=== PATIENT | female | born 1935 | race Caucasian/White ===

== ENCOUNTER 2021-01-26 10:18 | Inpatient (IN) | payer MEDICARE ==
[~2021-01-26] VITALS: Ht 160 cm; Wt 50.8 kg
--- NOTE | 2021-01-26 12:30 | NUR ---
GPS/RN PT RECEIVED FROM [facility] DIRECT ADMISSION ON 5150 FOR GD.ORIGINALLY FROM HOME. ON FACE TO FACE ASSESSMENT NO SI OR HI REPORTED. PT AMBULATORY NO ACUTE DISTRESS, VSS. REFUSED TO SIGN ADMITTING PAPERWORK AND REFUSED PICTURES TAKEN. PT CHECKED FOR CONTRABAND. VALUABLES PLACED TO THE SAFE. DR PRIETO PRESENT IN THE UNIT. DR HOLLAND MADE AWARE OF ADMISSION. PT REFUSED MRSA SWAB ON ADMISSION,WILL TRY LATER.
[2021-01-26] MEDS ORDERED: ZOLP10TA2 PO (12:57)
[2021-01-26] MEDS ORDERED: CLON1TAB12 PO (12:57)
[2021-01-26] MEDS ORDERED: CEPH500C2 PO (12:57)
[2021-01-26] MEDS ORDERED: ALPR1TAB7 PO (12:57)
[2021-01-26 13:00] VITALS: BP 146/96
[2021-01-26] MEDS ORDERED: BLOOD SUGAR DIAGNOSTIC 1 EACH STRIP IN ONE (13:00)
[2021-01-26] MEDS ORDERED: MAG HYDROX/AL HYDROX/SIMETH 30 ML UDC PO PRN (13:00)
[2021-01-26] MEDS ORDERED: ZOLPIDEM TARTRATE 5 MG TABLET PO PRN (13:00)
--- NOTE | 2021-01-26 14:14 | NUR ---
GPS/RN PT REFUSED MRSA SWAB. OFFERED X3.
[2021-01-26] MEDS: LORAZEPAM 0.5 MG TABLET PO PRN ×2 (14:26→21:07)
--- NOTE | 2021-01-26 14:51 | NUR ---
RN-CO: PT REFUSED MRSA SWAB AND SKIN CHECK.
[2021-01-26 16:00] VITALS: BP 146/95
--- NOTE | 2021-01-26 20:30 | NUR ---
GPS-RN NOTES: PAGED EPIC ON-CALL DR. VELÁZQUEZ REGARDING KEFLEX A CONTINUATION ORDER FROM [facility]. AWAITING CALL BACK FROM
[2021-01-26 21:03] VITALS: BP 119/83
--- NOTE | 2021-01-26 21:07 | NUR ---
GPS-RN NOTES: ANXIETY PT. C/O FEELING ANXIOUS. PRN ATIVAN 1 MG PO GIVEN PER PATIENT'S REQUEST. WILL CONTINUE TO MONITOR FOR PATIENT'S SAFETY.
[2021-01-26] MEDS ORDERED: TRAZODONE 50 MG TABLET PO SCH (22:00)
[2021-01-26] MEDS: ACETAMINOPHEN 325 MG TABLET PO PRN (22:58)
--- NOTE | 2021-01-26 22:58 | NUR ---
GPS-RN NOTES: ACETAMINOPHEN 650MG PO GIVEN C/O HEADACHE. WILL CONTINUE TO MONITOR.
--- NOTE | 2021-01-27 00:02 | NUR ---
GPS-RN NOTES: DR. VELÁZQUEZ CALLED BACK INFORMED HIM PATIENT IS COMPLAINING OF BURNING SENSATION WHEN URINATING. PATIENT ORDERED U/A NOTED AND CARRIED OUT.
--- NOTE | 2021-01-27 04:45 | NUR ---
GPS RN NOTES: ANSWERED CALL LIGHT TO PATIENT'S ROOM ([phone]) AND PATIENT C/O "I CAN'T BREATHE". PT STATED REPEATEDLY, "I HAVE A HARD TIME BREATHING". PATIENT IS ALERT AND ORIENTED X3, ABLE TO MAKE NEEDS KNOWN, ANXIOUS AND RESTLESS. PATIENT MADE COMFORTABLE, HEAD OF BED ELEVATED, VITAL SIGNS TAKEN AND NOTED BP 187/102, R 20, PULSE 102 T98.2, O2 SATURATION @99% ON ROOM AIR. BLOOD SUGAR WAS 99MG/DL. MONITORED PATIENT'S CLOSELY. 0450-CALLED RAPID RESPONSE 0452-RAPID TEAM ARRIVED IN THE UNIT TOOK OVER THE PATIENT TO REASSESS. NURSING PRINT PRODUCTION COORDINATOR AT BEDSIDE. PT. REMAINS ALERT AND ORIENTED X3, VERY ANXIOUS, RESTLESS AND HYPERVERBAL. RECHECKED V/S BP 150/95, R20, PULSE 92, T98.0, O2 SATURATION @100%. 0505- PRN ATIVAN 1MG PO GIVEN ORDERED, WELL TOLERATED. PATIENT CONTINUES TO BE ANXIOUS. 050- ACETAMINOPHEN 650MG PO GIVEN, PATIENT C/O RIB CAGE PAIN. WILL CONTINUE TO REASSESS. PAGED EPIC ON-CALL DR. VELÁZQUEZ. AWAITING CALL BACK FROM . 0520 - PATIENT IS CALM AND COOPERATIVE. PT DENIES PAIN OR DISCOMFORT AT THIS TIME. NO C/O CHEST PAIN. PATIENT STATED "I FEEL BETTER NOW". OFFERED SNACKS/FLUIDS, TOLERATED WELL. NO FAMILY TO NOTIFY. WILL ENDORSE TO THE DAY SHIFT NURSE. Addendum: 01/27/21 at 0734 by TISH MENDIOLA RN LEFT VOICE MESSAGE TO ELIZABETH RAVI [phone]. AWAITING RESPONSE. WILL ENDORSE TO DAY SHIFT NURSE FOR CONTINUITY OF CARE. Addendum: 01/27/21 at 0737 by TISH MENDIOLA RN 0700- DR. MIDDLETON MADE HIS AM ROUNDS. PATIENT WAS SEEN AND EVALUATED BY MD WITH NO NEW ORDER AT THIS TIME. URINALYSIS RESULTS TO BE FOLLOWED BY AM NURSE.
[2021-01-27 04:47] LABS: BILIRUBIN,URINE NEGATIVE (NEGATIVE); COLOR,URINE YELLOW (YELLOW); LEUKOCYTE ESTERASE ,URINE TRACE (NEGATIVE); NITRITE, URINE NEGATIVE (NEGATIVE); PROTEIN,URINE NEGATIVE (NEGATIVE); UGLUCOSE NEGATIVE (NEGATIVE); UROBILINOGEN,URINE 0.2 EU/dL (0.2)
[2021-01-27] MEDS: LORAZEPAM 0.5 MG TABLET PO PRN ×4 (05:05→23:28)
[2021-01-27] MEDS: ACETAMINOPHEN 325 MG TABLET PO PRN (05:09)
[2021-01-27 05:13] LABS: RBC,URINE 0-2 /HPF (0-2)
[2021-01-27 05:14] LABS: BACTERIA,URINE Few /HPF (None Seen); MUCUS,URINE Few /LPF (None Seen); SQUAMOUS EPITHELIAL CELL,UR Few /HPF (None Seen)
[2021-01-27 07:01] VITALS: BP 187/102
[2021-01-27 08:00] VITALS: BP 156/87
[2021-01-27] MEDS: SERTRALINE HCL 25 MG TABLET PO SCH (08:37)
--- NOTE | 2021-01-27 11:08 | NUR ---
ATIVAN PRN GIVEN DUE TO ANXIETY. WILL CONTINUE TO MONITOR.
--- NOTE | 2021-01-27 12:06 | NUR ---
SHAKIRA Initial Discharge: Patient resides at [address] [place] [address]; ([phone]). Patient has a boyfriend of 30 years named Ricardo ([phone]). Pt would want to go back home upon dc. SHAKIRA will work with the MD and treatment team to coordinate appropriate discharge.
--- NOTE | 2021-01-27 12:07 | NUR ---
Social Work Note/Substance Abuse Intervention: Patient was provided with a brief substance abuse intervention and referred to [facility] ([phone]), [facility] ([phone]), and [facility] ([phone]) for cocaine use.
[2021-01-27 12:30] LABS: ALBUMIN 3.8 g/dL (3.4-5.0); BILIRUBIN,TOTAL 0.6 mg/dL (0.2-1.0); CALCIUM, SERUM 9.2 mg/dL (8.5-10.1); POTASSIUM 3.2 mmol/L (3.5-5.1); TOTAL PROTEIN, SERUM 6.8 g/dL (6.4-8.2)
[2021-01-27 12:33] LABS: CHOLESTEROL 197 mg/dL (<200); HDL CHOLESTEROL 65 mg/dL (40-60); TRIGLYCERIDES 171 mg/dL (30-150)
[2021-01-27 12:57] LABS: LDL 95 mg/dL (0-99)
[2021-01-27] MEDS: CEPHALEXIN MONOHYDRATE 500 MG CAPSULE PO SCH ×2 (13:00→17:28)
[2021-01-27 16:00] VITALS: BP 130/74
--- NOTE | 2021-01-27 17:29 | NUR ---
ATIVAN 1mg GIVEN DUE TO ANXIETY. WILL CONTINUE TO MONITOR.
[2021-01-27 19:30] VITALS: BP 114/71
[2021-01-27] MEDS: TRAZODONE 50 MG TABLET PO SCH (21:02)
[2021-01-28] MEDS: ACETAMINOPHEN 325 MG TABLET PO PRN (00:47)
[2021-01-28] MEDS: LORAZEPAM 0.5 MG TABLET PO PRN ×3 (07:57→22:09)
--- NOTE | 2021-01-28 07:57 | NUR ---
PT. C/O FEELING ANXIOUS. PRN ATIVAN 1 MG PO GIVEN PER PATIENT'S REQUEST. WILL CONTINUE TO MONITOR FOR PATIENT'S SAFETY.
[2021-01-28 08:00] VITALS: BP 112/82
[2021-01-28] MEDS: SERTRALINE HCL 25 MG TABLET PO SCH (09:12)
[2021-01-28] MEDS: CEPHALEXIN MONOHYDRATE 500 MG CAPSULE PO SCH ×3 (09:15→17:24)
--- NOTE | 2021-01-28 15:05 | NUR ---
PT. C/O FEELING ANXIOUS. PRN ATIVAN 1 MG PO GIVEN PER PATIENT'S REQUEST. WILL CONTINUE TO MONITOR FOR PATIENT'S SAFETY.
[2021-01-28 15:34] VITALS: BP 126/68
--- NOTE | 2021-01-28 19:28 | NUR ---
GPS RN NOTE, RECEIVED PATIENT AWAKE AND IN BED, NO S/S OR COMPLAINTS OF PAIN AT THIS TIME. PATIENT IS DISPLAYING NO S/S OF APPARENT DISTRESS AT THIS TIME. PATIENT BREATHING IS UNLABORED WITH EQUAL RISE AND FALL OF THE CHEST. PATIENT IS ALERT AND ORIENTED X 3 ON ROOM AIR WITH A SPO2 96%. PATIENT IS COMPLIANT WITH MEDICATIONS, ANXIOUS AT TIMES, NEEDY, COOPERATIVE AND NEEDS REDIRECTION. PATIENT DENIES SUICIDAL AND HOMICIDAL IDEATIONS AT THIS TIME. PATIENT ASSISTED WITH TURNING AND REPOSITIONING Q2HR AND PRN FOR COMFORT AND CIRCULATION. PATIENT HAS NO NEEDS AT THIS TIME. PATIENT EDUCATED ON THE USE OF THE CALL BEAL. PATIENT BED SIDE RAILS UP X 2 FOR SAFETY. PATIENT BED IS LOCKED, LOW, WITH BED ALARM ON. WILL CONTINUE TO MONITOR THIS PATIENT Q15 MINUTES WITH THE HELP OF STAFF TO MAINTAIN SAFETY.
[2021-01-28 20:00] VITALS: BP 151/97
--- NOTE | 2021-01-28 20:42 | NUR ---
GPS RN NOTE, PATIENT POTASSIUM IS 3.2 ON 01/27/21 @ 0900 AND HAS NOT BEEN REPLACED. PAGED [facility] AND INFORMED DR CARTY OF MY FINDINGS. DR CARTY ORDERED K DUR 40MEQ PO ONCE. ALL ORDERS NOTED AND CARRIED OUT. WILL CONTINUE TO MONITOR THIS PATIENT WITH THE HELP OF STAFF.
[2021-01-28] MEDS: TRAZODONE 50 MG TABLET PO SCH (21:04)
[2021-01-28] MEDS: MAGNESIUM HYDROXIDE 30 ML UDC PO PRN (21:05)
--- NOTE | 2021-01-28 21:05 | NUR ---
GPS RN NOTE, PATIENT HAS A COMPLAINT OF CONSTIPATION AND IS REQUESTING MILK OF MAGNESIA AT THIS TIME. PATIENT VITAL SIGNS ARE STABLE. GAVE MILK OF MAGNESIA 30 ML DOSE PO Q12HR PRN ORDERED. WILL REASSESS AND I WILL CONTINUE TO MONITOR THIS PATIENT WITH THE HELP OF STAFF.
[2021-01-28] MEDS ORDERED: POTASSIUM CHLORIDE 20 MEQ TAB.PRT.SR PO ONE (22:00)
--- NOTE | 2021-01-28 22:11 | NUR ---
GPS RN NOTE, PATIENT HAS A COMPLAINT OF FEELING ANXOUS AND IS REQUESTING ATIVAN AT TTHIS TIME. PATIENT VITAL SIGNS ARE STABLE. GAVE ATIVAN 1MG PO Q6HR PRN ORDERED. WILL REASSESS FOR ANXIETY AND I WILL CONTINUE TO MONITOR THIS PATIENT WITH THE HELP OF STAFF.
[2021-01-29] MEDS: LORAZEPAM 0.5 MG TABLET PO PRN ×2 (06:58→18:23)
[2021-01-29 08:00] VITALS: BP 146/90
[2021-01-29] MEDS: CEPHALEXIN MONOHYDRATE 500 MG CAPSULE PO SCH ×3 (08:09→16:36)
[2021-01-29] MEDS: SERTRALINE HCL 25 MG TABLET PO SCH ×2 (08:09→08:24)
--- NOTE | 2021-01-29 08:24 | NUR ---
RN-CO: 25 MG PO OF ZOLOFT WAS GIVEN AT 0809 AM AND ANOTHER 25 MG GIVEN OF NOW DUE TO DR PRIETO"S NEW ORDER OF 50 MG.
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
--- NOTE | 2021-01-29 09:25 | NUR ---
SHAKIRA Coordination of Care: Patient will follow up with (Psychiatrist) Dr. Sivakumar Hartmann [place] at [address] [address], [place] [phone]; left a voicemail for the doctor to contact pt of appointment.
--- NOTE | 2021-01-29 09:30 | NUR ---
SHAKIRA Coordination of Care: Patient will follow up with (Psychiatrist) Dr. Sivakumar Hartmann located at [id number] [place] [address] [address] [facility], [place] [address]; ([phone]) on February 06 at 9:30AM.
--- NOTE | 2021-01-29 09:39 | NUR ---
SHAKIRA Coordination of Care: SHAKIRA coordinated home health services through [facility] ([phone]; fax: [phone]) admin Alexander stated pt is approved for services.
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
--- NOTE | 2021-01-29 13:06 | NUR ---
SHAKIRA Family Contact: SHAKIRA spoke with patient's boyfriend Ricardo ([phone]) he shared that he lives with pt and takes care of pt. He stated that he is in the process of finding a new job to support pt.
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
[2021-01-29 16:00] VITALS: BP 130/82
[2021-01-29] MEDS: hydrOXYzine PAMOATE 25 MG CAPSULE PO PRN (16:40)
--- NOTE | 2021-01-29 16:40 | NUR ---
RN-CO: KAYY REQUESTED FOR C/O ANXIETY.
--- NOTE | 2021-01-29 18:27 | NUR ---
RNGunnarCO: ATIVAN 1 MG PO FOR C/O ANXIETY ATTACK.
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
--- NOTE | 2021-01-29 18:34 | NUR ---
RN-CO: PAGED DR MIDDLETON FOR THE RESULT OF URINE CULTURE AND SENSITIVITY. AWAITING TO CALL BACK. WILL RELAY ALSO THE PRESCRIPTION OF [place] [facility] , DR LEVI TO ADD CIPRO 25 MG PO BID X 3 DAYS. PT HAS 2 ORGANISMS IN URINE, KLEBSIELLA PNEUMONIAE AND E. COLI.
[2021-01-29 20:00] VITALS: BP 155/94
[2021-01-29] MEDS: MAGNESIUM HYDROXIDE 30 ML UDC PO PRN (20:21)
--- NOTE | 2021-01-29 20:24 | NUR ---
RN NOTE: C/O CONSTIPATION PATIENT C/O CONSTIPATION AND REQUESTED TO TAKE MILK OF MAGNESIA, PRN MILK OF MAGNESIA ADMINISTERED ORDERED. WILL CONTINUE TO MONITOR.
--- NOTE | 2021-01-29 20:30 | NUR ---
RN NOTE: PAGED DR GORMAN FOR THE RESULT OF URINE CULTURE AND SENSITIVITY. AWAITING TO CALL BACK. WILL ALSO RELAY THE PRESCRIPTION OF [facility] , DR LEVI TO ADD CIPRO 250 MG PO BID X 3 DAYS. PT HAS 2 ORGANISMS IN URINE, KLEBSIELLA PNEUMONIAE AND E. COLI. WAITING FOR MD TO CALL BACK.
[2021-01-29] MEDS: TRAZODONE 50 MG TABLET PO SCH (21:19)
--- NOTE | 2021-01-29 23:53 | NUR ---
RN NOTE DR. CARTY VISITED THE UNIT AND REVIEWED PATIENT'S URINE CULTURE & SENSITIVITY RESULTS. MD ORDERED CIPROFLOXACIN 250 MG Q12 HOURS X 3 DAYS. ORDER NOTED & CARRIED OUT. NO CHANGE OF CONDITION NOTED AT THIS TIME. PATIENT IS SLEEPING COMFORTABLY.
[2021-01-30] MEDS: ACETAMINOPHEN 325 MG TABLET PO PRN (00:26)
--- NOTE | 2021-01-30 00:30 | NUR ---
RN NOTE PATIENT C/O UPPER BODY ACHE 05/29 & REQUESTED TO TAKE TYLENOL. PRN TYLENOL 650 MG PO ADMINISTERED. WILL CONTINUE TO MONITOR.
[2021-01-30] MEDS: hydrOXYzine PAMOATE 25 MG CAPSULE PO PRN ×3 (00:41→17:56)
--- NOTE | 2021-01-30 00:41 | NUR ---
RN NOTE: ANXIETY PATIENT C/O ANXIETY AND REQUESTED TO TAKE MEDICINE FOR ANXIETY. PRN VISTARIL 25 MG PO ADMINISTERED, PATIENT IS TALKATIVE, VENTILATED HER FEELINGS, EMOTIONAL SUPPORT PROVIDED. WILL CONTINUE TO MONITOR THE PATIENT CLOSELY.
[2021-01-30] MEDS: LORAZEPAM 0.5 MG TABLET PO PRN (06:35)
--- NOTE | 2021-01-30 07:17 | NUR ---
RN NOTE: ANXIETY PATIENT VERBALIZED BEING ANXIOUS AND RESTLESS AND REQUESTED TO GET ATIVAN. PRN ATIVAN 1 MG PO ADMINISTERED. ENDORSED TO AM RN.
[2021-01-30 08:00] VITALS: BP 119/67
[2021-01-30] MEDS: CIPROFLOXACIN HCL 250 MG TABLET PO SCH ×2 (08:08→21:35)
[2021-01-30] MEDS: SERTRALINE HCL 25 MG TABLET PO SCH (08:08)
[2021-01-30] MEDS: CEPHALEXIN MONOHYDRATE 500 MG CAPSULE PO SCH ×3 (08:09→16:02)
[2021-01-30 16:00] VITALS: BP 118/66
[2021-01-30 20:00] VITALS: BP 156/84
--- NOTE | 2021-01-30 20:56 | NUR ---
GPS-RN NOTES: PATIENT IS COMPLAINING OF NOT HAVING BOWEL MOVEMENT. ABDOMEN IS TENDER. PRUNE JUICE OFFERED. DR. CARTY ORDERED LACTULOSE 30G PO X ONE TIME. ORDER NOTED AND CARRIED OUT. WILL CONTINUE TO MONITOR.
[2021-01-30] MEDS ORDERED: LACTULOSE 10 G/15 ML UDC (PYXIS) PO ONE (21:00)
[2021-01-30] MEDS: TRAZODONE 50 MG TABLET PO SCH (22:01)
--- NOTE | 2021-01-31 00:15 | NUR ---
RN NOTE: C/O CONSTIPATION WHILE MAKING ROUNDS, WAIST PLEATER NOTED PATIENT WAS SITTING ON THE EDGE OF THE BED, PATIENT LOOKED LETHARGIC. WAIST PLEATER CALLED FOR HELP, 2 NURSES WENT TO THE ROOM IMMEDIATELY TO ASSESS THE PATIENT, WHEN ATTEMPTED TO ASSIST PATIENT BACK TO BED BY 3 NURSES, PATIENT PASSED OUT. RAPID RESPONSE WAS CALLED & CANCELLED BECAUSE PATIENT BECAME STABLE AND RESPONSIVE. VITAL SIGNS ARE 120/77, 90, 18, 97.8, 97% AT ROOM AIR. PATIENT STARTED TALKING AND STATED, " I PASSED OUT BECAUSE I STRAINED TO HAVE A BOWEL MOVEMENT." PATIENT CONTINUOS TO HAVE C/O CONSTIPATION AND ABDOMINAL DISCOMFORT, PER PATIENT, " I HAVEN'T HAD NORMAL BOWEL MOVEMENT FOR FOR MORE THAN A WEEK, I HAVE CONSTIPATION PROBLEM SINCE I WAS 26 YEARS OLD. I NEED SOME MEDICINE." PATIENT IS PASSING GAS. DR. CARTY NOTIFIED THAT PATIENT IS STILL C/O CONSTIPATION AND LACTULOSE WAS GIVEN BUT INEFFECTIVE. DR. CARTY ORDERED US ABDOMEN IN AM AT 0800 AND FLEET ENEMA PA X 1. ORDER NOTED NOTED AND CARRIED OUT. WILL CONTINUE TO MONITOR THE PATIENT CLOSELY FOR ANY CHANGE OF CONDITION.
[2021-01-31] MEDS ORDERED: MINERAL OIL 133 ML (PYXIS) 1 EA ENEMA RC ONE ×2 (00:30→01:30)
--- NOTE | 2021-01-31 01:40 | NUR ---
RN NOTE: FLEET ENEMA GIVEN FLEET ENEMA WAS GIVEN IA X 1 ORDERED BY MD. PATIENT TOLERATED THE PROCEDURE WELL. WILL CONTINUE TO MONITOR FOR THE EFFECTIVENESS OF FLEET ENEMA.
[2021-01-31] MEDS: hydrOXYzine PAMOATE 25 MG CAPSULE PO PRN ×3 (02:27→18:00)
--- NOTE | 2021-01-31 02:29 | NUR ---
RN NOTE: ANXIETY PATIENT C/O ANXIETY AND REQUESTED TO TAKE MEDICINE FOR ANXIETY. PRN VISTARIL 25 MG PO ADMINISTERED, PATIENT IS EMOTIONAL AND DEPRESSED, EMOTIONAL SUPPORT PROVIDED. WILL CONTINUE TO MONITOR THE PATIENT CLOSELY.
--- NOTE | 2021-01-31 05:47 | NUR ---
RN NOTE PATIENT IS SLEEPING COMFORTABLY AT THIS TIME. PATIENT HAD NO BOWEL MOVEMENT YET.
--- NOTE | 2021-01-31 06:44 | NUR ---
RN NOTE PATIENT IS NPO SINCE MIDNIGHT DUE TO SCHEDULED ABDOMINAL ULTRASOUND AT 0800 ON 01/31/21. PATIENT IS SLEEPING COMFORTABLY AT THIS TIME.
--- NOTE | 2021-01-31 07:10 | NUR ---
RN NOTE PATIENT HAD SMALL BM, SOFT, WAITING FOR ULTRASOUND TO BE DONE AT 0800. SHELLY WAS NOTIFIED AT RADIOLOGY. HELD PATIENT'S BREAKFAST TRAY SINCE PATIENT IS NPO. ENDORSED TO AM RN.
[2021-01-31 08:00] VITALS: BP 138/75
[2021-01-31] MEDS: CIPROFLOXACIN HCL 250 MG TABLET PO SCH ×2 (08:37→21:33)
[2021-01-31] MEDS: SERTRALINE HCL 25 MG TABLET PO SCH (08:37)
[2021-01-31] MEDS: CEPHALEXIN MONOHYDRATE 500 MG CAPSULE PO SCH ×3 (08:37→17:03)
--- NOTE | 2021-01-31 10:47 | NUR ---
Court Hearing: Patient's court hearing for 2190 was today and it was upheld for GD.
[2021-01-31 15:54] VITALS: BP 131/75
[2021-01-31] MEDS: ACETAMINOPHEN 325 MG TABLET PO PRN ×2 (16:02→23:30)
[2021-01-31 20:08] VITALS: BP 144/89
[2021-01-31] MEDS: TRAZODONE 50 MG TABLET PO SCH (21:34)
[2021-01-31] MEDS: MAGNESIUM HYDROXIDE 30 ML UDC PO PRN (21:35)
[2021-02-01] MEDS: hydrOXYzine PAMOATE 25 MG CAPSULE PO PRN ×4 (00:08→18:52)
--- NOTE | 2021-02-01 06:30 | NUR ---
GPS RN NOTE, PATIENT HAS A COMPLAINT OF FEELING ANXIOUS AND IS REQUESTING VISTARIL AT THIS TIME. PATIENT VITAL SIGNS ARE STABLE. GAVE VISTARIL 25MG PO Q6HR PRN ORDERED. WILL REASSESS FOR ANXIETY AND I WILL CONTINUE TO MONITOR THIS PATIENT WITH THE HELP OF STAFF.
[2021-02-01] MEDS: SERTRALINE HCL 25 MG TABLET PO SCH (07:45)
[2021-02-01] MEDS: CEPHALEXIN MONOHYDRATE 500 MG CAPSULE PO SCH ×3 (07:45→16:40)
[2021-02-01 08:00] VITALS: BP 148/91
[2021-02-01] MEDS: CIPROFLOXACIN HCL 250 MG TABLET PO SCH ×2 (09:11→21:05)
[2021-02-01] MEDS: ACETAMINOPHEN 325 MG TABLET PO PRN (12:40)
--- NOTE | 2021-02-01 15:10 | NUR ---
GPS/RN PT IS ANXIOUS AND C/O CHEST PAIN. DR MIDDLETON CALLED FOR THE ORDERS VIA [employer] EXCHANGE. NEW ORDERS RECEIVED AND CARRIED OUT.
[2021-02-01 16:00] VITALS: BP 154/90
[2021-02-01 16:16] LABS: BASOPHILS % (AUTO) 0.5 % (0.0-2.0); EOSINOPHILS % (AUTO) 0.8 % (0.0-6.0); HEMATOCRIT 43 % (33-45); HEMOGLOBIN 14.5 g/dL (11.5-14.8); LYMPHOCYTES # (AUTO) 1.3 K/uL (0.8-4.8); LYMPHOCYTES % (AUTO) 16.4 % (20.0-44.0); MEAN CORPUSCULAR HGB CONC 34 g/dl (31.0-36.0); MEAN CORPUSCULAR VOLUME 91 fL (82-100); MONOCYTES # (AUTO) 0.6 K/uL (0.1-1.30); MONOCYTES % (AUTO) 7.1 % (2.0-12.0); NEUTROPHILS # (AUTO) 5.9 K/uL (1.8-8.9); NEUTROPHILS % (AUTO) 75.2 % (43.0-81.0); PLATELET COUNT (AUTO) 281 K/uL (150-450); RED BLOOD CELL COUNT(AUTO) 4.77 MIL/uL (4.0-5.2); WHITE BLOOD COUNT (AUTO) 7.8 K/uL (4.3-11.0)
[2021-02-01 16:23] LABS: CALCIUM, SERUM 8.9 mg/dL (8.5-10.1); CARBON DIOXIDE 24 mmol/L (21-32); CHLORIDE 100 mmol/L (98-107); CREATININE 1.1 mg/dL (0.6-1.3); GLUCOSE 130 mg/dL (74-106); POTASSIUM 4.3 mmol/L (3.5-5.1); SODIUM SERUM 136 mmol/L (136-145); UREA NITROGEN, BLOOD 19 mg/dL (7-18)
[2021-02-01 19:59] VITALS: BP 141/79
[2021-02-01 20:10] VITALS: BP 141/79
[2021-02-01] MEDS: TRAZODONE 50 MG TABLET PO SCH (21:13)
[2021-02-01] MEDS ORDERED: ZOLPIDEM TARTRATE 5 MG TABLET PO ONE (22:00)
--- NOTE | 2021-02-01 22:10 | NUR ---
RN NOTE: SEEN BY DR. DAMON PATIENT VERBALIZED C/O INABILITY TO SLEEP, ANXIETY & RESTLESSNESS AND REQUESTING SLEEPING MEDICINE, INFORMED DR. DAMON ABOUT PATIENT'S CONCERN. DR. DAMON ORDERED AMBIEN 5 MG ONE TIME DOSE TO BE GIVEN TONIGHT. ORDER NOTED AND CARRIED OUT. WILL FOLLOW MD ORDER.
--- NOTE | 2021-02-01 22:15 | NUR ---
RN NOTE: INSOMNIA PATIENT C/O INABILITY TO SLEEP AND REQUESTED TO TAKE SLEEPING PILL, DR. DAMON ORDERED ONE TIME AMBIEN 5 MG. AMBIEN 5 MG 1 TAB PO ADMINISTERED. WILL CONTINUE TO MONITOR.
[2021-02-02 08:00] VITALS: BP 123/75
[2021-02-02] MEDS: SERTRALINE HCL 25 MG TABLET PO SCH (08:28)
[2021-02-02] MEDS: CEPHALEXIN MONOHYDRATE 500 MG CAPSULE PO SCH ×3 (08:28→17:56)
[2021-02-02] MEDS: hydrOXYzine PAMOATE 25 MG CAPSULE PO PRN ×3 (08:28→20:52)
[2021-02-02 16:03] VITALS: BP 136/69
[2021-02-02 19:45] VITALS: BP 149/97
--- NOTE | 2021-02-02 20:53 | NUR ---
GPS RN NOTES: PATIENT IS ANXIOUS AND RESTLESS. VISTARIL 25MG/1CAP GIVEN PO PRN AT 2051. WILL CONTINUE TO MONITOR.
[2021-02-02] MEDS: TRAZODONE 50 MG TABLET PO SCH (21:39)
[2021-02-02] MEDS: ACETAMINOPHEN 325 MG TABLET PO PRN (21:45)
[2021-02-03] MEDS: hydrOXYzine PAMOATE 25 MG CAPSULE PO PRN ×3 (02:56→16:17)
--- NOTE | 2021-02-03 02:59 | NUR ---
GPS RN NOTES: PATIENT IS AWAKE, RESTLESS AND COMPLAINING OF ANXIETY. VISTARIL 25MG/1TAB GIVEN PO PRN AT 0256. WILL CONTINUE TO MONITOR.
--- NOTE | 2021-02-03 06:52 | NUR ---
GPS RN CLOSING NOTES: PATIENT LAYING IN BED, AWAKE, A/O X2-3. PATIENT SLEPT 4 HR THIS SHIFT. WEEKLY SKIN ASSESSMENT DONE, PICTURES TAKEN AND PLACED IN PATIENT CHART, NO NEW SKIN ISSUES NOTED. NO S/S OF DISTRESS. RESPIRATION EVEN AND UNLABORED WITH EQUAL RISE AND FALL OF THE CHEST, ON ROOM AIR. ALL PATIENT CARE NEEDS HAVE BEEN MET ANTICIPATED. WILL CONTINUE TO MONITOR AND ENDORSE TO AM SHIFT.
[2021-02-03 08:00] VITALS: BP 167/91
[2021-02-03] MEDS: SERTRALINE HCL 25 MG TABLET PO SCH (08:24)
[2021-02-03] MEDS: CEPHALEXIN MONOHYDRATE 500 MG CAPSULE PO SCH (08:24)
--- NOTE | 2021-02-03 08:38 | NUR ---
SW Family Contact: Patient's cousin Maico ([phone]) contacted and wanted pt's status.
--- NOTE | 2021-02-03 09:55 | NUR ---
PATIENT C/O ANXIETY AND REQUESTED TO TAKE MEDICINE FOR ANXIETY. PRN VISTARIL 25 MG PO ADMINISTERED. WILL CONTINUE TO MONITOR .
[2021-02-03 11:21] VITALS: BP 149/89
[2021-02-03] MEDS: ACETAMINOPHEN 325 MG TABLET PO PRN ×2 (14:43→21:23)
--- NOTE | 2021-02-03 14:43 | NUR ---
PATIENT C/O GENERALIZED PAIN OF 3. AND REQUESTED TO TAKE TYLENOL. TYLENOL 650MG GIVEN. WILL CONTINUE TO MONITOR.
[2021-02-03 16:16] VITALS: BP 159/98
--- NOTE | 2021-02-03 16:18 | NUR ---
PATIENT C/O ANXIETY AND REQUESTED TO TAKE MEDICINE FOR ANXIETY. PRN VISTARIL 25 MG PO ADMINISTERED. WILL CONTINUE TO MONITOR .
[2021-02-03 20:00] VITALS: BP 153/98
[2021-02-03 20:01] VITALS: BP 153/98
--- NOTE | 2021-02-03 20:06 | NUR ---
RN NOTE PATIENT HAS BEEN C/O INABILITY TO SLEEP AT NIGHT AND STATED," I DON'T FEEL RESTED AT ALL, I AM TIRED BUT UNABLE TO SLEEP." NOTIFIED DR. PRIETO & RECEIVED NEW ORDER OF AMBIEN 5 MG ONE TIME ONLY AT [address] PRIETO'S ORDER. NO ACUTE CHANGES NOTED.
[2021-02-03] MEDS: TRAZODONE 50 MG TABLET PO SCH (21:06)
--- NOTE | 2021-02-03 21:25 | NUR ---
RN NOTE PATIENT C/O UPPER BODY ACHE 05/29 & REQUESTED TO TAKE TYLENOL. PRN TYLENOL 650 MG PO ADMINISTERED. WILL CONTINUE TO MONITOR.
[2021-02-03] MEDS ORDERED: ZOLPIDEM TARTRATE 5 MG TABLET PO ONE (22:30)
--- NOTE | 2021-02-03 22:32 | NUR ---
RN NOTE: INSOMNIA PATIENT C/O INABILITY TO SLEEP, ANXIOUS AND EMOTIONAL. PATIENT REQUESTED TO TAKE SLEEPING MEDICINE. PRN AMBIEN 5 MG PO ADMINISTERED. WILL CONTINUE TO MONITOR.
--- NOTE | 2021-02-03 22:35 | NUR ---
RN NOTE PATIENT HAD SNACK AND TOLERATED WELL.
[2021-02-04 08:00] VITALS: BP 139/77
[2021-02-04] MEDS: SERTRALINE HCL 25 MG TABLET PO SCH (08:27)
[2021-02-04] MEDS: ACETAMINOPHEN 325 MG TABLET PO PRN ×2 (11:17→20:37)
--- NOTE | 2021-02-04 11:17 | NUR ---
PATIENT C/O UPPER BODY ACHE 05/29 & REQUESTED TO TAKE TYLENOL. PRN TYLENOL 650 MG PO ADMINISTERED. WILL CONTINUE TO MONITOR
[2021-02-04] MEDS: hydrOXYzine PAMOATE 25 MG CAPSULE PO PRN ×2 (12:23→21:03)
--- NOTE | 2021-02-04 12:24 | NUR ---
PATIENT C/O ANXIETY AND REQUESTED TO TAKE MEDICINE FOR ANXIETY. PRN VISTARIL 25 MG PO ADMINISTERED. WILL CONTINUE TO MONITOR .
[2021-02-04 16:17] VITALS: BP 159/82
[2021-02-04 20:05] VITALS: BP 164/100
[2021-02-04] MEDS: MIRTAZAPINE 15 MG TABLET PO SCH (21:03)
[2021-02-05] MEDS: hydrOXYzine PAMOATE 25 MG CAPSULE PO PRN ×3 (03:03→15:52)
[2021-02-05] MEDS: ACETAMINOPHEN 325 MG TABLET PO PRN (06:21)
[2021-02-05 08:00] VITALS: BP 163/90
[2021-02-05] MEDS: SERTRALINE HCL 25 MG TABLET PO SCH (08:20)
--- NOTE | 2021-02-05 08:55 | NUR ---
SHAKIRA Coordination of Care: Patient will follow up with (Psychiatrist) Dr. Sivakumar Hartmann located at [id number] [place] [address], [place] [address]; on February 10 at 3:30PM via telehealth. Per doctor Shahbaz.
[2021-02-05] MEDS ORDERED: ZOLPIDEM TARTRATE 5 MG TABLET PO PRN (09:00)
--- NOTE | 2021-02-05 09:43 | NUR ---
PATIENT IS COMPLAINING OF ANXIETY. VISTARIL 25MG/1TAB GIVEN PO. WILL CONTINUE TO MONITOR.
--- NOTE | 2021-02-05 15:52 | NUR ---
PATIENT IS COMPLAINING OF ANXIETY. VISTARIL 25MG/1TAB GIVEN PO. WILL CONTINUE TO MONITOR.
[2021-02-05 16:00] VITALS: BP 147/95
[2021-02-05 19:50] VITALS: BP 160/100
[2021-02-05 20:15] VITALS: BP 160/100
[2021-02-05 20:30] VITALS: BP 145/89
[2021-02-05] MEDS: MIRTAZAPINE 15 MG TABLET PO SCH (21:11)
--- NOTE | 2021-02-05 21:30 | NUR ---
RN NOTE: REFUSED SHOWER OFFERED SHOWER TO THE PATIENT, BUT PATIENT REFUSED SHOWER AT THIS TIME. PATIENT STATED," I AM NOT READY TO TAKE A SHOWER NOW, MAY BE IN THE MORNING." DESPITE OF EXPLANATIONS PATIENT CONTINUED TO REFUSE SHOWER.
--- NOTE | 2021-02-05 22:13 | NUR ---
RN NOTE: INSOMNIA PATIENT C/O INABILITY TO SLEEP, ANXIOUS, RESTLESS AND EMOTIONAL. PATIENT REQUESTED TO TAKE SLEEPING MEDICINE. PRN AMBIEN 5 MG PO ADMINISTERED ORDERED BY MD. WILL CONTINUE TO MONITOR.
[2021-02-06] MEDS: ACETAMINOPHEN 325 MG TABLET PO PRN (05:26)
--- NOTE | 2021-02-06 05:27 | NUR ---
RN NOTE: PAIN PATIENT C/O GENERALIZED BODY PAIN, PATIENT REQUESTED TO TAKE TYLENOL. PRN TYLENOL 650 MG PO ADMINISTERED ORDERED.
[2021-02-06] MEDS: hydrOXYzine PAMOATE 25 MG CAPSULE PO PRN (06:44)
--- NOTE | 2021-02-06 06:47 | NUR ---
RN NOTE: ANXIETY PATIENT C/O ANXIETY, RESTLESSNESS, PATIENT REQUESTED TO TAKE MEDICINE FOR ANXIETY. PRN VISTARIL 25 MG PO ADMINISTERED, WILL CONTINUE TO MONITOR THE PATIENT CLOSELY.
[2021-02-06 08:00] VITALS: BP 187/117
--- NOTE | 2021-02-06 08:02 | NUR ---
SW Discharge Note: Patient will return back home located at [address], [place] [address]; ([phone]). Please arrange taxi at 1PM. Patients boyfriend Ricardo ([phone]) is aware. Patient appears to be alert and oriented x2 and happy to be going back home. Patient denies suicidal or homicidal ideation. Patient denies visual/auditory hallucinations. Patient referred to [facility] for primary doctor located at [address], [address], [place] [address] ([phone]). Patient will follow up with (Psychiatrist) Dr. Sivakumar Hartmann located at [address], [place] [address]; on February 10 at 3:30PM via telehealth. Patient was referred for home health services by [facility] (ph: [phone]; fax: [phone]) for medication management, physical therapy, and nursing follow ups, per Alexander admission they will visit pt upon dc. Patient was provided with a brief substance abuse intervention and referred to [facility] ([phone]), [facility] ([phone]), and [facility] ([phone]) for drug abuse. Pt presents with euthymic mood and congruent affect.
--- NOTE | 2021-02-06 08:05 | NUR ---
Pt. is very anxious about the discharge and BP is 187/[address] Purvis made aware and ordered Ativan 1 mg po x1.
[2021-02-06] MEDS: SERTRALINE HCL 25 MG TABLET PO SCH (08:11)
[2021-02-06] MEDS ORDERED: LORAZEPAM 1 MG TABLET PO ONE (08:30)
[2021-02-06 10:00] VITALS: BP 144/80
--- NOTE | 2021-02-06 10:25 | NUR ---
Dr. Garcia gave an order to D/C hold and D/C home and to follow up with psych and medical doctors. Pt. without distress, denies suicidal and homicidal. Discharge papers ready and belongings ready and pictures taken for the skin issues. Addendum: 02/06/21 at 1048 by SHAWN ESTRADA RN Pt. with an order of Home Health Care. Addendum: 02/06/21 at 1321 by SHAWN ESTRADA RN Radha RG made aware of the discharge.
--- NOTE | 2021-02-06 13:15 | NUR ---
Pt. left the unit with belongings and escorted by staff to the lobby. Left the unit ambulatory and without distress. Pt. instructed on meds to continue at home and verbalizes understanding and advised to make a follow up to psych and medical doctors and agreed. V/S taken; BP 141/83, NY 91, RR 18, temp 98.0 and oxygen sat 98%.
--- NOTE | 2021-02-06 14:20 | NUR ---
Called the boyfriend Ricardo at [phone] and said Jeanine is there already and able to talk to Jeanine also.
== END 2021-02-06 13:15 | disposition home or self-care (01) | DRG 885 ==
LOC: GPS 12:14
PROVIDERS: ADMIT Psychiatry & Neurology Psychiatry; ATTEND Internal Medicine
DX: F32.3 Major depressive disorder, single episode, severe with psychotic features (principal); N39.0 Urinary tract infection, site not specified; R45.851 Suicidal ideations; F29 Unspecified psychosis not due to a substance or known physiological condition; F41.9 Anxiety disorder, unspecified; F14.10 Cocaine abuse, uncomplicated; G62.9 Polyneuropathy, unspecified; Z73.6 Limitation of activities due to disability; M62.81 Muscle weakness (generalized); F13.10 Sedative, hypnotic or anxiolytic abuse, uncomplicated
CPT/HCPCS: 36415; 76700-TC; 80048-TC; 80053-TC; 80061-TC; 81001; 82962-TC; 84484-TC; 85025-TC; 97116-TC; 97530-TC; Q0177